=== PATIENT | female | born 1940 | race Caucasian/White ===

== ENCOUNTER 2016-06-22 05:39 | Observation (INO) | payer MEDICARE, OTHER ==
[2016-06-22] MEDS ORDERED: LIDOCAINE 1% 2 ML INJ ONE (05:44)
[2016-06-22] MEDS ORDERED: ceFAZolin 2 GM/DEXTROSE 100 ML IV ONE (06:30)
[2016-06-22] MEDS ORDERED: PHENAZOPYRIDINE HCL 200 MG TAB PO ONE (06:30)
[2016-06-22] MEDS ORDERED: SKIN ADHESIVE (DERMABOND) 1 EACH TP ONE (06:58)
[2016-06-22] MEDS ORDERED: BUPIVACAINE/EPI 0.5% 30 ML SDV ONE (06:58)
[2016-06-22] MEDS ORDERED: REMIFENTANIL HCL 1 MG VIAL ONE (07:07)
[2016-06-22] MEDS ORDERED: PROPOFOL/EMULSION 500 MG/50 ML BOTTLE IV ONE ×2 (07:08→08:25)
[2016-06-22] MEDS ORDERED: fentaNYL 100 MCG/2 ML INJ ONE ×2 (07:08→09:54)
[2016-06-22] MEDS ORDERED: ROCURONIUM 50 MG/5 ML VIAL ONE (07:09)
[2016-06-22] MEDS ORDERED: LR 1,000 ML IV ONE (07:09)
[2016-06-22] MEDS ORDERED: LIDOCAINE 1% 5 ML SDV ID PRN (07:09)
[2016-06-22] MEDS ORDERED: ONDANSETRON 4 MG/2 ML VIAL ONE (07:10)
[2016-06-22] MEDS ORDERED: DEXAMETHASONE 4 MG/ML VIAL ONE (07:10)
[2016-06-22] MEDS ORDERED: LIDOCAINE 2% 5 ML SDV ONE (07:17)
[2016-06-22] MEDS ORDERED: epHEDrine SULFATE 10 MG/ML SYR ONE ×2 (07:35→09:04)
[2016-06-22] MEDS ORDERED: KETOROLAC 30 MG/1 ML SDV ONE (09:14)
[2016-06-22] MEDS ORDERED: NEOSTIGMINE METHYLSULFATE 5 MG/5 ML SYR ONE (09:15)
[2016-06-22] MEDS ORDERED: GLYCOPYRROLATE 0.2 MG/1 ML VIAL ONE ×2 (09:16→09:27)
[2016-06-22] MEDS ORDERED: HYDROCODONE/APAP 5/325 TAB PO PRN (09:35)
[2016-06-22] MEDS ORDERED: ONDANSETRON 4 MG/2 ML VIAL IVP PRN (09:35)
--- NOTE | 2016-06-22 09:40 | POSTOPPROG ---
Post Op Note Date of Operation: 06/22/16 Surgeon: Trell Odell Nurse Head: Phylicia Romero Anesthesia: GET(General Endotracheal) Pre-op Diagnosis: uterovaginal prolapse, stress incontinence Post-op Diagnosis: Same Procedure: Robotic hyst, sacrocolpopexy, TOT sling, cysto Findings: Normal ureteral function at end of case Inf/Abcess present in the surg proc area at time of surgery?: No EBL: Minimal Complications: None Specimen(s): Uterus (no cervix) BSO
[2016-06-22] MEDS ORDERED: LR 1,000 ML IV SCH (10:00)
[2016-06-22] MEDS: KETOROLAC 15 MG/1 ML SDV IVP SCH ×2 (15:11→21:11)
--- NOTE | 2016-06-22 16:32 | GOP ---
[f rep st] OPERATIVE REPORT DATE OF OPERATION: 06/22/2016 SURGEON: Trell Odell MD SCREENER AND BLENDER: Phylicia Romero CFA. ANESTHESIA: General. PREOPERATIVE DIAGNOSIS: 1. Uterovaginal prolapse. 2. Stress urinary incontinence. POSTOPERATIVE DIAGNOSIS: 1. Uterovaginal prolapse. 2. Stress urinary incontinence. PROCEDURE PERFORMED: 1. Robotic-assisted laparoscopic hysterectomy, bilateral salpingo-oophorectomy. 2. Robotic-assisted laparoscopic sacrocervicopexy with mesh. 3. Repair of cystocele and rectocele. 4. Perineorrhaphy. 5. Transobturator sling. 6. Cystoscopy. FINDINGS: SPECIMENS: Uterus, bilateral tubes, and ovaries. ESTIMATED BLOOD LOSS: Scant. DESCRIPTION OF PROCEDURE: The patient was taken to the operating room. She was identified. General anesthesia was administered and found to be adequate. She was placed in the lithotomy position and prepared and draped in normal sterile fashion. A Griggs catheter was placed in her bladder. A 1 cm infraumbilical incision was made with a scalpel. The Veress needle with the CO2 gas flowing was advanced into the peritoneal cavity. The abdomen was then insufflated with carbon dioxide gas. The 12 mm trocar followed by the laparoscope were then inserted. The upper abdomen was unremarkable. Two lateral ports were placed on either side under direct visualization. She then was placed in Trendelenburg position and the [employer] robot docked on the left side. The instruments were then brought into the abdominal cavity under direct visualization. COMPLICATIONS: None. DISPOSITION: Patient stable to PACU. The patient was noted to have a small white to yellowish mass adherent to the left pelvic sidewall, measuring approximately 1.5 cm in diameter. It had the slight appearance of retained ovarian tissue; however, it more likely was an epiploica which had detached from the bowel. The mass was elevated off the pelvic sidewall and gentle dissection was performed to remove it. She also was noted to have a right ovarian cyst. As a result, a right salpingo-oophorectomy was performed. The infundibulopelvic vessels were skeletonized, cauterized and transected. A stent was then placed in the vagina. The bladder was back- filled with saline to identify its proximal margin. The bladder was gently dissected off the anterior vaginal wall down to the level of the bladder neck. The rectovaginal space was entered and the rectum dissected off the posterior vaginal wall down to the level of the perineal body. Measurements were then obtained and the mesh trimmed to size. The sigmoid colon was then retracted laterally. The peritoneum over the sacral promontory was incised. The fat pad was gently dissected off the anterior longitudinal ligament. The peritoneal incision was then extended along the right pericolic gutter and medial to the right ureter and lateral to the sigmoid colon until it met the rectovaginal opening. The mesh was then brought into the abdominal cavity. Three sutures of 4-0 Attalla- Earl were used to attach the distal posterior mesh to the perineal body. Two additional rows of Attalla-Earl sutures were placed posteriorly. The anterior arm of the mesh was then sutured down to the level of the bladder neck and laterally to the paravaginal tissue also with 3 rows of Attalla-Earl suture. The stent was then removed. The sacral arm of the mesh was placed over the promontory and the tension adjusted. I then scrubbed back into the case to examine the vagina. The tension was further adjusted to resolve the cystocele and rectocele without undue tension on the vagina. Two sutures of 2-0 Attalla-Earl were used to attach the sacral arm of the mesh to the anterior longitudinal ligament at the level of the upper sacral one body below the intervertebral disk space. The excess mesh was then trimmed. The peritoneum was then closed over the entire mesh using 3-0 V-Loc 90 suture. The robot was then undocked. The fascia was closed with 0 Vicryl, the skin with 4-0 Monocryl and surgical adhesive. Attention was then turned to the sling portion of the procedure. A midurethral incision was made with a scalpel. A tunnel was created bilaterally up to the obturator internus muscles. Skin incisions were made over the obturator notches. The curved trocar was placed through the left skin incision, redirected around the ischiopubic rami and out through the vaginal incision using a vaginal finger as a guide. The lateral sulci were examined and no evidence of vaginal injury had occurred. The sling was then attached and brought out along the same course. The exact same procedure was performed on the patient's right side. The sling was then adjusted to allow a small midurethral gap. The vaginal epithelium was closed with 2-0 Vicryl, the skin with 4-0 Monocryl. Cystoscopy was then performed. The patient had a known solitary right kidney. The right ureter had vigorous jets of urine. There was no evidence of bladder nor urethral injury seen. No mesh nor suture was seen within the bladder nor urethra. No obvious pathology was seen. Attention was then turned to the perineorrhaphy. A transverse incision was made along the perineal body. The posterior vaginal epithelium was undermined with the Metzenbaum scissors and incised sagittally. The epithelium was gently dissected off the underlying rectovaginal connective tissue. The connective tissue was then plicated in the midline with 0 Vicryl suture. The rectovaginal septum was reattached to the perineal body also with 0 Vicryl suture. The excess epithelium was trimmed and the vagina closed with 2-0 Vicryl suture. Vaginal packing was then placed. Anesthesia was reversed and patient taken to PACU awake, in stable condition. DICTATION ENDS HERE /[id number]/MODL MTDD
[2016-06-23] MEDS: KETOROLAC 15 MG/1 ML SDV IVP SCH ×3 (03:16→09:55)
[2016-06-23] MEDS: LR 1,000 ML IV SCH ×2 (03:19→10:14)
[2016-06-23 03:30] VITALS: PULSE 68; RESP 18
[2016-06-23 06:42] LABS: HEMATOCRIT 30.2 % (38.0-47.0); HEMOGLOBIN 10.4 g/dL (12.6-16.3)
[2016-06-23 08:27] VITALS: BP 103/60; TEMP 98
[2016-06-23] MEDS ORDERED: KETOROLAC 15 MG/1 ML SDV IVP ONE (09:30)
[2016-06-23 14:28] VITALS: O2SAT 90
--- NOTE | 2016-06-24 18:53 | GDS ---
[f rep st] DISCHARGE SUMMARY DISCHARGE DIAGNOSES: 1. Symptomatic uterovaginal prolapse. 2. Stress urinary incontinence. PROCEDURES: 1. Robotic-assisted laparoscopic hysterectomy, bilateral salpingo-oophorectomy. 2. Robotic-assisted laparoscopic sacrocervicopexy with mesh. 3. Repair of cystocele and rectocele. 4. Transobturator sling. 5. Perineorrhaphy. 6. Cystoscopy. HISTORY: The patient is a 76-year-old female with symptomatic prolapse and stress incontinence. Zeke yañez was taken to the operating room on 06/22/2016 where she underwent the above-mentioned procedures. Her postoperative course was relatively uneventful. She did have an episode the evening of surgery while eating chicken that she felt it was stuck in her throat. This then resolved the following mo rning, and she was able to ambulate, void, and tolerate a general diet. She is discharged home on p ostoperative day #1 in good condition. Medications included ibuprofen and Tylenol for pain. She is to follow up in the office 2 weeks after discharge. /[id number]/MODL
== END 2016-06-23 14:00 | disposition home or self-care (01) ==
LOC: F3N 05:39 → FOB 11:17
PROVIDERS: ADMIT Obstetrics & Gynecology; ATTEND Obstetrics & Gynecology
PROC: 0UT7FZZ Resection of Bilateral Fallopian Tubes, Via Natural or Artificial Opening With Percutaneous Endoscopic Assistance (ICD-10-PCS; principal; 2016-06-22 07:15)
PROC: 0JUC3JZ Supplement of Pelvic Region Subcutaneous Tissue and Fascia with Synthetic Substitute, Percutaneous Approach (ICD-10-PCS; principal; 2016-06-22 07:15)
PROC: 0UTC7ZZ Resection of Cervix, Via Natural or Artificial Opening (ICD-10-PCS; principal; 2016-06-22 07:15)
PROC: 8E0W4CZ Robotic Assisted Procedure of Trunk Region, Percutaneous Endoscopic Approach (ICD-10-PCS; principal; 2016-06-22 07:15)
PROC: 0UU Female Reproductive System, Supplement (ICD-10-PCS; principal; 2016-06-22 07:15)
PROC: 0TUC0JZ Supplement Bladder Neck with Synthetic Substitute, Open Approach (ICD-10-PCS; principal; 2016-06-22 07:15)
PROC: 0UT2FZZ Resection of Bilateral Ovaries, Via Natural or Artificial Opening With Percutaneous Endoscopic Assistance (ICD-10-PCS; principal; 2016-06-22 07:15)
PROC: 0UT9FZZ Resection of Uterus, Via Natural or Artificial Opening With Percutaneous Endoscopic Assistance (ICD-10-PCS; principal; 2016-06-22 07:15)
DX: N81.4 Uterovaginal prolapse, unspecified (principal); N39.3 Stress incontinence (female) (male)
CPT/HCPCS: 57267; 57288; 58552; C1763; C1771; G0378; J0690; J1100; J1885; J2405; J2704; J2710; J3010

== ENCOUNTER → 2018-07-30 | Outpatient (CLI) | payer OTHER | LOC: FIMAGING 07:50 | PROVIDERS: ATTEND Internal Medicine Geriatric Medicine | DX: Z12.31 Encounter for screening mammogram for malignant neoplasm of breast (principal); Z13.820 Encounter for screening for osteoporosis; M81.0 Age-related osteoporosis without current pathological fracture; Z78.0 Asymptomatic menopausal state ==